=== PATIENT | female | born 1940 | race Two or more races ===

== ENCOUNTER 2016-12-26 11:30 | Inpatient (IN) | payer MEDICARE, SELFPAY ==
[~2016-12-26] VITALS: Ht 149.9 cm; Wt 62.6 kg
--- NOTE | ~2016-12-26 | HP ---
PATIENT'S NAME: GLADYS KAPADIA [facility] AGE: 76 Y [address] ROOM: [place] [address] LOCATION: GPCU ADMIT DATE: 12/26/2016 History & Physical DISCHARGE DATE: FAMILY PHYSICIAN: Oc Puckett MD ATTENDING PHYSICIAN: Amanda PHOENIX DATE OF SERVICE: CHIEF COMPLAINT: Hematuria. HISTORY OF PRESENT ILLNESS: The patient is a 76-year-old female with past medical history of uncontrolled diabetes mellitus, CKD stage 3, fatty liver disease, hypertension, venous stasis, and psoriasis, who presents here from her PCP's office with hematuria and uncontrolled diabetes mellitus. The patient was experiencing hematuria on Thursday and was seen by her primary care physician, was started on Macrobid. However, symptoms did not improve, which led her to be seen again by her PCP's office today. At her PCP's office, she was found to have a blood glucose of 611 and a hemoglobin of 9.1, which is decreased from her prior of 10.8. The patient continues to have some hematuria. The patient was transferred here for treatment of uncontrolled diabetes mellitus type 2 and hematuria. The patient currently reports dysuria and hematuria. She also reports polyuria and polydipsia. The patient claims that she is compliant with her medication and has not missed any of her insulin doses or her oral antidiabetic medication. The patient denies chest pain, shortness of breath, abdominal pain, nausea, vomiting, back pain, fever, chills, orthopnea, dyspnea, dizziness, headache, vision change, and nosebleed. The patient reports that at one point around May of last year, she has had some hematuria that got better by itself. PAST MEDICAL HISTORY: Diabetes mellitus, fatty liver, venous stasis, hypertension, CKD stage 3, and psoriasis. SURGICAL HISTORY: Complete hysterectomy, cataract, gallstone removal, and back surgery. FAMILY HISTORY: Father from lung cancer and mother from kidney cancer. SOCIAL HISTORY: She is a former smoker but has stopped since 1997. She denies drinking and lives with her ex-. [facility] AGE: 76 Y [address] ROOM: [place] [address] LOCATION: GPCU ADMIT DATE: 12/26/2016 History & Physical DISCHARGE DATE: FAMILY PHYSICIAN: Oc Puckett MD ATTENDING PHYSICIAN: Amanda PHOENIX MEDICATIONS: See MAR. REVIEW OF SYSTEMS: A 10-point system was evaluated. All negative except what is stated in the HPI. PHYSICAL EXAMINATION: VITAL SIGNS: Temperature of 98.3, blood pressure 104/58, pulse of 85. GENERAL APPEARANCE: The patient is comfortable, lying on bed, alert and awake, in no acute distress. HEAD: Normocephalic, atraumatic. EYES: Extraocular muscle intact. Sclerae nonicteric. MOUTH: Dry oral mucosa, denture present. NOSE: No nasal discharges. EARS: No ear discharges. NECK: Supple. CHEST: Clear to auscultation bilaterally. ABDOMEN: Soft, nontender, nondistended. Bowel sounds present. No guarding. HEART: Regular rate and rhythm. Grade 2 systolic murmur heard in left lower sternal border. SKIN: The patient has some venous stasis changes in the lower extremities. MUSCULOSKELETAL: Range of motion intact. No swelling or effusion noted on joints. EXTREMITIES: Lower extremity venous stasis change seen. No edema. ANNEALER: Alert and oriented x3. Motor and sensory grossly intact. LABORATORY DATA: Lactate of 3.4. White blood cell count of 4.7, hemoglobin of 9.1, platelet of 167. INR of 1.2. Hemoglobin A1c of 14.2, and potassium of 5 with CO2 of 28, BUN of 22 and creatinine of 1.3. Urinalysis shows protein of 500, glucose of 1000, ketones 15, white blood cell count of 5 to 10, and blood of 250. ASSESSMENT AND PLAN: The patient is a 76-year-old lady with past medical history of diabetes mellitus, chronic kidney disease stage 3, hypertension, and fatty liver, who presents here with hematuria and uncontrolled diabetes mellitus type 2. 1. Acute blood loss, etiology secondary to history of hematuria, has been experiencing hematuria since Thursday. Currently, hemoglobin is 9.1, decreased from baseline of 10.8. We will check hemoglobin q.8 hours. Transfuse for hemoglobin below 7. Etiology of the hematuria most likely secondary to ongoing urinary tract infection versus underlying malignancy since the patient has a history of smoking and also has a family history of kidney cancer. As the patient is dehydrated and has mild elevation of PATIENT'S NAME: GLADYS KAPADIA [facility] AGE: 76 Y [address] ROOM: [address] [place], [place] [address] [facility] DATE: 12/26/2016 History & Physical DISCHARGE DATE: FAMILY PHYSICIAN: Oc Puckett MD ATTENDING PHYSICIAN: Amanda PHOENIX creatinine, we will treat the patient with IV fluids, and when she is adequately hydrated, we will consider getting a CT abdomen and pelvis with contrast to further investigate malignancy. If that does not show any etiology, we will consider consulting Urology for possible cystoscopy to further investigate hematuria. We will start the patient on ceftriaxone. 2. Uncontrolled diabetes mellitus type 2. The patient reports that she takes her medication at home. We will currently start the patient on non- DKA insulin drip. We will hold oral antidiabetic medication including metformin. Her PCP reports that she is brittle diabetic, and we will take extra care in terms of correction of her blood glucose. Continue with non-DKA protocol insulin drip. 3. Lactic acidosis, etiology secondary to dehydration, secondary to polydipsia, secondary to uncontrolled diabetic. Continue IV fluids. We will trend lactate until it is normal. 4. Urinary tract infection. The patient reports of dysuria, and UA shows elevated white blood cell and pyuria. Therefore, we will start the patient on ceftriaxone, and we will also get urine culture. 5. Dehydration. Etiology secondary to uncontrolled diabetes mellitus type 2 with history of polyuria. We will start the patient on IV fluids, and we will repeat the renal function panel tomorrow. 6. Chronic kidney disease stage 3, currently on IV fluids. We will follow the patient closely. 7. Hypertension. There is a history of hypertension under her past medical history, but I do not see any medication that she is on currently. We will continue that. 8. Diabetic neuropathy, on gabapentin. We will continue medication. 9. Gastroesophageal reflux disease, on omeprazole. Continue omeprazole. 10. Depression. Continue Zoloft. 11. Hyperlipidemia. We will continue Lipitor. Assessment and plan was discussed with the patient. Greater than 30 minutes was spent on plan and care. ALBANMD DAMIR KERNS/lashaun /[id number] D: [id number] T: [id number] HISTORY & PHYSICAL
--- NOTE | ~2016-12-26 | ECHO ---
Transthoracic Echocardiography Report (TTE) Demographics Patient Name GLADYS KAPADIA Date of Study 12/29/2016 Patient Number [id number] Visit Number [id number] Date of 1940 Room Number G6318 Accession Number [id number] Gender Female Age 76 year(s) Referring Italo Nava MD Washing Machine Loader Nadege Melendez Physician Octavio Zazueta MD [facility] Phys[facility] Interpreting Candi Brito Prawn Trawler Hand Physician Supervising Ordering Physician Mora Crump MD/NAIF NAPIER Nurse Stress Tower Truck Driver Conclusions Contractility Score Summary Normal Left Ventricular contractility was noted. Summary The estimated left ventricular ejection fraction is 60% with normal WM..The left ventricle is normal in size .Mild concentric left ventricular hypertrophy. The left atrium is mildly dilated. Mild mitral regurgitation by color Doppler. The aortic valve is moderately sclerotic. Mild tricuspid regurgitation by color Doppler. There is moderate pulmonary hypertension. The pulmonary pressure (RVSP) is 45 mmHg. Small clinically insignificant posterior pericardial effusion. Procedure Type of Study TTE procedure:2D Echocardiogram, M-Mode, Doppler , Color Doppler. Procedure Date Date: 12/29/2016 Start: 07:50 AM Study Location: Inpatient Portable Technical Quality: Adequate visualization Indications:Heart murmur. Appropriate Use Criteria: 9 Patient Status: Routine HR: 67 bpm BP: 113/56 mmHg M-Mode/2D Measurements LV Diastolic Dimension: 3.99 cm LV Systolic Dimension: 1.83 cm LV Septum Diastolic: 1.12 cm LV PW Diastolic: 1.14 cm AO Root Dimension: 2.8 cm Cardiac Output: 4.73 l/min AV Cusp Separation: 1 cm RV Diastolic Dimension: 2.69 cm LA volume: 56 ml LVOT: 1.7 cm RV Base: 3.77 cm LVOT VTI: 31.1 cm RV Mid: 2.94 cm LV Stroke volume: 70.56 ml TAPSE: 2.34 cm TDI-S': 14.6 cm/s Doppler Measurements AV Peak Velocity: 2.32 m/s MV Peak E-Wave: 1.38 m/s AV Peak Gradient: 21.53 mmHg MV Peak A-Wave: 1.35 m/s AV Mean Gradient: 11 mmHg MV E/A Ratio: 1.02 LVOT Peak Velocity: 1.02 m/s MV Deceleration Time: 349 msec TR Velocity:3.06 m/s PV Peak Velocity: 1.22 m/s TR Gradient:37.45 mmHg PV Peak Gradient: 5.95 mmHg Estimated RAP:8 mmHg Estimated PASP: 45.45 mmHg Estimated RVSP: 45 mmHg A' Septal Velocity: 0.05 m/s E' Septal Velocity: 0.07 m/s A' Lateral Velocity: 0.1 m/s E' Lateral Velocity: 0.06 m/s Findings Left Ventricle The left ventricle is normal in size .Mild concentric left ventricular hypertrophy.Normal EF and WM. Right Ventricle Normal right ventricle structure and function. Left Atrium The left atrium is mildly dilated. Right Atrium Normal right atrial size. Mitral Valve Mild mitral annular calcification. Mild mitral regurgitation by color Doppler. Aortic Valve The aortic valve is moderately sclerotic. Tricuspid Valve Normal tricuspid valve structure and function. Mild tricuspid regurgitation by color Doppler. There is moderate pulmonary hypertension. The pulmonary pressure (RVSP) is 45 mmHg. Pulmonic Valve The pulmonic valve is not well visualized. Pericardial Effusion Small posterior pericardial effusion. Miscellaneous Visualized portions of the aortic root and ascending aorta appear normal in size. Pleural Effusion No evidence of pleural effusion. Contractility Score LV regional wall motion:(0-Non visualized 1-Normal 2-Hypokinesis 3-Akinesis 4-Dyskinesis 5-Aneurysm) Signature dtt: Alisha Christopher dtd: 12/29/16 1640 Physician Self Edit
--- NOTE | ~2016-12-26 | DS ---
PATIENT'S NAME: GLADYS KAPADIA [facility] AGE: 76 Y [address] ROOM: [address] [place], [place] [address] LOCATION: GPCU ADMIT DATE: 12/26/2016 Discharge Summary DISCHARGE DATE: 12/30/2016 FAMILY PHYSICIAN: Oc Puckett MD ATTENDING PHYSICIAN: Carlita Patel PRINCIPAL DIAGNOSES: 1. Hematuria. 2. Acute blood loss anemia. 3. Type 2 diabetes, uncontrolled. 4. Urinary tract infection. HOSPITAL COURSE: This is a 76-year-old female who was admitted directly from her primary care physician's office after she presented there with complaint of hematuria as well as kwyjxyivw-gi-[id number] diabetes. The patient was evaluated and worked up for a cause of the hematuria including a CT scan of her abdomen and pelvis, which did not reveal any abnormalities to explain her hematuria from a renal standpoint at least. The patient was also evaluated by Urology and recommendation right now is to follow up with Dr. Nick as outpatient and conduct a cystoscopy as outpatient during that time as well. The patient has stayed stable throughout her hospitalization. Hemoglobin and hematocrit had been stable as well. The patient did have symptoms consistent with a urinary tract infection as well and had been treated with IV ceftriaxone during hospitalization. The patient today is doing good from that standpoint. As far as her diabetes, the patient does have brittle diabetes with blood sugars ranging under 100 in the a.m. hours and going up to 300s during the day. At this point, I will try and simplify her diabetes regimen and send her home on 20 units of Levemir in the morning and 5 units of NovoLog with meals 3 times a day, and she will follow up with her primary care physician within 1 week to follow up on that. I will also discharge her on 5 more days of Ceftin 500 mg b.i.d. to finish antibiotic course for her UTI as well. PHYSICAL EXAMINATION: VITAL SIGNS: Stable, afebrile. CHEST: Clear to auscultation bilaterally. HEART: S1, S2. Regular rate and rhythm. ABDOMEN: Soft, nontender, nondistended with positive bowel sounds. EXTREMITIES: Without edema. NEURO: Grossly nonfocal. MEDICATIONS: Per MAR including, 1. Ceftin 500 mg b.i.d. for 5 days. 2. Diabetic regimen changes include Levemir 20 units daily as well as scheduled NovoLog 5 units 3 times a day with meals. PATIENT'S NAME: GLADYS KAPADIA [facility] AGE: 76 Y [address] ROOM: [id number] [place] [id number] [facility]: 12/26/2016 Discharge Summary DISCHARGE DATE: 12/30/2016 FAMILY PHYSICIAN: Oc Puckett MD ATTENDING PHYSICIAN: Carlita Patel DISPOSITION: Home. Greater than 30 minutes were spent in discharge planning and facilitating. MD ZAHIRA PRICE/lashaun /[id number] d: 12/31/16 0213 t: 01/05/17 1419, DISCHARGE SUMMARY
--- NOTE | ~2016-12-26 | CON ---
[facility] AGE: 76 Y [address] ROOM: [place] [address] LOCATION: GPCU ADMIT DATE: 12/26/2016 Consultation DISCHARGE DATE: FAMILY PHYSICIAN: Oc Puckett MD ATTENDING PHYSICIAN: Amanda PHOENIX DATE OF CONSULTATION: 12/27/2016 REFERRING PHYSICIAN: Lavelle Nick MD HISTORY OF PRESENT ILLNESS: History as follows: The patient is a 76-year-old female, admitted secondary to uncontrolled type 2 diabetes and multiple medical problems. At her primary care physician's office, her glucose was 611. The patient also reports gross hematuria for some time. The patient denies a history recent trauma or infection. She does report that her hematuria is resolving. A urinalysis was obtained shows full field red cells with only 510 white cells and nitrite negative, and urine culture is probable contaminant. An abdominopelvic CT scan was performed today, this showed no significant urological abnormalities other than posterior bladder wall thickening, possibly due to chronic inflammation. The patient does have a history of cigarette smoking in the past. In view of her negative CT scan, I would recommend cystoscopy either as an inpatient or can be performed as an outpatient. PAST MEDICAL HISTORY: Significant for diabetes, fatty liver, hypertension, cirrhosis, stage III renal insufficiency, and venous stasis. PAST OPERATIONS: Include hysterectomy, cataract surgery, cholecystectomy, back surgery, and partial lung resection. SOCIAL HISTORY: The patient is a nonsmoker, stopping in 1997. The patient does not consume alcohol. REVIEW OF SYMPTOMS: Negative other than hematuria. PHYSICAL EXAMINATION: GENERAL: Elderly female, in no acute distress, resting comfortably in bed. HEENT: Eyes: Extraocular muscle motions intact. Ears, Nose, Mouth, and Throat: No nasal or ear drainage noted. LUNGS: Clear bilaterally. CARDIAC: Regular rhythm and rate. ABDOMEN: Soft and nontender with normoactive bowel sounds throughout. [facility] AGE: 76 Y [address] ROOM: [id number] [place] [id number] LOCATION: GPCU ADMIT DATE: 12/26/2016 Consultation DISCHARGE DATE: FAMILY PHYSICIAN: Oc Puckett MD ATTENDING PHYSICIAN: Amanda PHOENIX SKIN: Venostasis changes in lower extremities. NEURO: Grossly intact. MUSCULOSKELETAL: Full range of motion. IMPRESSION: Gross hematuria with minimal CT changes. PLAN: 1. We will check urine cytology. 2. We will schedule the patient for either inpatient or outpatient cystoscopy. MD JOSSY NUNN/lashaun /[id number] d: 12/27/162219 t: 12/29/16 192, CONSULTATION REPORT
[2016-12-26] MEDS ORDERED: ASPIRIN LO-DOSE81 MG PO (13:36)
[2016-12-26] MEDS ORDERED: LOTENSIN10 MG PO (13:37)
[2016-12-26] MEDS ORDERED: LIPITOR20 M1 PO (13:37)
[2016-12-26] MEDS ORDERED: DIPHENHIST25 M1 PO (13:38)
[2016-12-26] MEDS ORDERED: NEURONTIN400 MG PO (13:38)
[2016-12-26] MEDS ORDERED: GLUCOPHAGE500 MG PO (13:39)
[2016-12-26] MEDS ORDERED: LEVEMIR FL100 UNIT/1 SUB-Q (13:39)
[2016-12-26] MEDS ORDERED: NITROFURANTOIN100 MG PO (13:41)
[2016-12-26] MEDS ORDERED: PRILOSEC20 MG PO (13:43)
[2016-12-26] MEDS ORDERED: NOVOLOG FL100 UNIT/1 SUB-Q (13:43)
[2016-12-26] MEDS ORDERED: DITROPAN5 MG PO (13:44)
[2016-12-26] MEDS ORDERED: ZOLOFT50 MG PO (13:45)
[2016-12-26] MEDS ORDERED: REQUIP1 MG PO (13:45)
[2016-12-26] MEDS ORDERED: TYLENOL325 MG PO (13:46)
[2016-12-26] MEDS ORDERED: CALCIUM 600 +1 EAC6 PO (13:46)
[2016-12-26] MEDS ORDERED: DUREZOL5 ML OPHTH (13:47)
[2016-12-26 13:49] LABS: BILIRUBIN URINE NEGATIVE (NEGATIVE); BLOOD URINE 250 /UL (NEGATIVE); COLOR URINE RED (YELLOW); GLUCOSE URINE 1000 mg/dL (NEGATIVE); KETONE URINE 15 mg/dL (NEGATIVE); LEUKOCYTES URINE 100 /UL (NEGATIVE); NITRITE URINE NEGATIVE (NEGATIVE); PH URINE 6.5 (4.0-8.0); PROTEIN URINE 500 mg/dL (NEGATIVE); TURBIDITY URINE 4+ (CLEAR); UROBILINOGEN URINE NORMAL (NORMAL)
[2016-12-26 13:54] LABS: BASOPHIL % 0.9 %; EOSINOPHIL # 0.1 K/uL (0.0-0.5); EOSINOPHIL % 2.4 %; HEMATOCRIT 29.2 % (33.0-46.0); HEMOGLOBIN 9.1 g/dL (10.0-15.0); IMMATURE GRANULOCYTE % 0.9 %; LYMPHOCYTE # 0.9 K/uL (0.8-4.0); LYMPHOCYTE % 18.6 %; MCH 27.1 pg (27.0-34.0); MCHC 31.2 gm/dL (32.0-36.5); MCV 86.9 fl (83.0-98.0); MONOCYTE # 0.5 K/uL (0.0-1.0); MONOCYTE % 9.6 %; MPV 10.6 fl (9.4-12.4); NEUTROPHIL # (ANC) 3.2 K/uL (1.8-7.8); NEUTROPHIL % 67.6 %; NRBC % 0 /100WBC (0-0.00); PLATELET COUNT 167 K/uL (150-450); RBC 3.36 M/uL (3.50-5.50); RDW-CV 14.2 % (11.9-14.6); WBC 4.7 K/uL (4.0-11.0)
[2016-12-26 13:55] LABS: BACTERIA URINE NEGATIVE (NEGATIVE); EPITHELIAL URINE RARE #/HPF (NEGATIVE); RBC URINE FULL FIELD #/HPF (NEGATIVE)
[2016-12-26 14:16] LABS: ALBUMIN 2.2 gm/dL (3.5-5.0); CALCIUM 8.1 mg/dL (8.5-10.5); CREATININE 1.3 mg/dL (0.5-1.1); PHOSPHORUS 2.6 mg/dL (2.5-4.9)
[2016-12-26 23:18] LABS: HEMATOCRIT 26.3 % (33.0-46.0); HEMOGLOBIN 8.3 g/dL (10.0-15.0)
[2016-12-27 03:47] LABS: BASOPHIL # 0.1 K/uL (0.0-0.2); BASOPHIL % 1.2 %; EOSINOPHIL # 0.2 K/uL (0.0-0.5); EOSINOPHIL % 4.8 %; HEMOGLOBIN 8.6 g/dL (10.0-15.0); IMMATURE GRANULOCYTE % 0.6 %; LYMPHOCYTE # 1.2 K/uL (0.8-4.0); LYMPHOCYTE % 24.2 %; MCH 27.6 pg (27.0-34.0); MCHC 31.9 gm/dL (32.0-36.5); MCV 86.5 fl (83.0-98.0); MONOCYTE # 0.5 K/uL (0.0-1.0); MONOCYTE % 10.3 %; MPV 10.4 fl (9.4-12.4); NEUTROPHIL # (ANC) 2.9 K/uL (1.8-7.8); NEUTROPHIL % 58.9 %; NRBC % 0 /100WBC (0-0.00); PLATELET COUNT 162 K/uL (150-450); RBC 3.12 M/uL (3.50-5.50); RDW-CV 14.4 % (11.9-14.6)
[2016-12-27 04:26] LABS: BLOOD UREA NITROGEN 19 mg/dL (6-24); CALCIUM 7.8 mg/dL (8.5-10.5); CHLORIDE 104 mMol/L (96-110); CO2 28 mMol/L (22-32); CREATININE 0.8 mg/dL (0.5-1.1); PHOSPHORUS 2.8 mg/dL (2.5-4.9); SODIUM 137 mMol/L (135-145)
[2016-12-27 04:28] LABS: ALBUMIN 1.8 gm/dL (3.5-5.0); ESTIMATED GFR (MDRD EQUATION) > 60
[2016-12-27 07:51] LABS: HEMATOCRIT 29.7 % (33.0-46.0); HEMOGLOBIN 9.2 g/dL (10.0-15.0)
[2016-12-27 16:05] LABS: HEMATOCRIT 28.2 % (33.0-46.0); HEMOGLOBIN 8.8 g/dL (10.0-15.0)
[2016-12-28 00:14] LABS: HEMATOCRIT 26.5 % (33.0-46.0); HEMOGLOBIN 8.3 g/dL (10.0-15.0)
[2016-12-28 05:10] LABS: BASOPHIL # 0.1 K/uL (0.0-0.2); BASOPHIL % 1.1 %; EOSINOPHIL # 0.3 K/uL (0.0-0.5); EOSINOPHIL % 5.6 %; HEMATOCRIT 27.6 % (33.0-46.0); HEMOGLOBIN 8.7 g/dL (10.0-15.0); IMMATURE GRANULOCYTE % 0.7 %; LYMPHOCYTE # 1.3 K/uL (0.8-4.0); LYMPHOCYTE % 29.8 %; MCH 27.5 pg (27.0-34.0); MCHC 31.5 gm/dL (32.0-36.5); MCV 87.3 fl (83.0-98.0); MONOCYTE # 0.4 K/uL (0.0-1.0); MONOCYTE % 9.6 %; MPV 9.9 fl (9.4-12.4); NEUTROPHIL # (ANC) 2.4 K/uL (1.8-7.8); NEUTROPHIL % 53.2 %; NRBC % 0 /100WBC (0-0.00); PLATELET COUNT 164 K/uL (150-450); RBC 3.16 M/uL (3.50-5.50); RDW-CV 14.3 % (11.9-14.6); WBC 4.5 K/uL (4.0-11.0)
[2016-12-28 05:28] LABS: ANION GAP 11.4 (10.0-19.0); BLOOD UREA NITROGEN 10 mg/dL (6-24); CALCIUM 8.1 mg/dL (8.5-10.5); CHLORIDE 109 mMol/L (96-110); CO2 25 mMol/L (22-32); CREATININE 0.5 mg/dL (0.5-1.1); ESTIMATED GFR (MDRD EQUATION) > 60; PHOSPHORUS 3.1 mg/dL (2.5-4.9); POTASSIUM 4.4 mMol/L (3.7-5.1); SODIUM 141 mMol/L (135-145)
[2016-12-28 05:34] LABS: ALBUMIN 1.8 gm/dL (3.5-5.0)
[2016-12-29 04:53] LABS: BASOPHIL # 0.1 K/uL (0.0-0.2); BASOPHIL % 1.2 %; EOSINOPHIL # 0.2 K/uL (0.0-0.5); EOSINOPHIL % 4.6 %; HEMATOCRIT 26.3 % (33.0-46.0); HEMOGLOBIN 8.3 g/dL (10.0-15.0); IMMATURE GRANULOCYTE # 0.1 K/uL (0.0-0.3); IMMATURE GRANULOCYTE % 1.2 %; LYMPHOCYTE # 1.3 K/uL (0.8-4.0); LYMPHOCYTE % 30.2 %; MCH 27.5 pg (27.0-34.0); MCHC 31.6 gm/dL (32.0-36.5); MCV 87.1 fl (83.0-98.0); MONOCYTE # 0.5 K/uL (0.0-1.0); MONOCYTE % 11.5 %; MPV 10.2 fl (9.4-12.4); NEUTROPHIL # (ANC) 2.2 K/uL (1.8-7.8); NEUTROPHIL % 51.3 %; NRBC % 0 /100WBC (0-0.00); PLATELET COUNT 157 K/uL (150-450); RBC 3.02 M/uL (3.50-5.50); RDW-CV 14.6 % (11.9-14.6); WBC 4.3 K/uL (4.0-11.0)
[2016-12-29 05:05] LABS: ANION GAP 11.1 (10.0-19.0); BLOOD UREA NITROGEN 11 mg/dL (6-24); CALCIUM 8.2 mg/dL (8.5-10.5); CHLORIDE 108 mMol/L (96-110); CO2 24 mMol/L (22-32); CREATININE 0.5 mg/dL (0.5-1.1); ESTIMATED GFR (MDRD EQUATION) > 60; PHOSPHORUS 3.5 mg/dL (2.5-4.9); POTASSIUM 4.1 mMol/L (3.7-5.1); SODIUM 139 mMol/L (135-145)
[2016-12-29 05:09] LABS: ALBUMIN 1.7 gm/dL (3.5-5.0)
[2016-12-30 04:44] LABS: BASOPHIL # 0.1 K/uL (0.0-0.2); BASOPHIL % 1.3 %; EOSINOPHIL # 0.2 K/uL (0.0-0.5); EOSINOPHIL % 4.4 %; HEMATOCRIT 26.3 % (33.0-46.0); HEMOGLOBIN 8.2 g/dL (10.0-15.0); IMMATURE GRANULOCYTE # 0.1 K/uL (0.0-0.3); IMMATURE GRANULOCYTE % 1.1 %; LYMPHOCYTE # 1.3 K/uL (0.8-4.0); LYMPHOCYTE % 28.7 %; MCH 27.3 pg (27.0-34.0); MCHC 31.2 gm/dL (32.0-36.5); MCV 87.7 fl (83.0-98.0); MONOCYTE # 0.5 K/uL (0.0-1.0); MONOCYTE % 11.2 %; MPV 10.2 fl (9.4-12.4); NEUTROPHIL # (ANC) 2.4 K/uL (1.8-7.8); NEUTROPHIL % 53.3 %; NRBC % 0 /100WBC (0-0.00); PLATELET COUNT 174 K/uL (150-450); RDW-CV 14.6 % (11.9-14.6); WBC 4.6 K/uL (4.0-11.0)
[2016-12-30 04:57] LABS: BLOOD UREA NITROGEN 12 mg/dL (6-24); CALCIUM 7.9 mg/dL (8.5-10.5); CHLORIDE 110 mMol/L (96-110); CO2 26 mMol/L (22-32); CREATININE 0.6 mg/dL (0.5-1.1); ESTIMATED GFR (MDRD EQUATION) > 60; PHOSPHORUS 3.3 mg/dL (2.5-4.9); SODIUM 140 mMol/L (135-145)
[2016-12-30 04:58] LABS: ALBUMIN 1.8 gm/dL (3.5-5.0)
[2016-12-30] MEDS ORDERED: CEFTIN500 MG PO (13:39)
== END 2016-12-30 14:15 | disposition disaster alternative care site (69) | DRG 638 ==
LOC: GPCU 12:35
PROVIDERS: Internal Medicine; ADMIT Internal Medicine
DX: E11.65 Type 2 diabetes mellitus with hyperglycemia (principal); D62 Acute posthemorrhagic anemia; E87.2 Acidosis; N39.0 Urinary tract infection, site not specified; K76.0 Fatty (change of) liver, not elsewhere classified; G62.9 Polyneuropathy, unspecified; E86.0 Dehydration; E78.5 Hyperlipidemia, unspecified; F32.9 Major depressive disorder, single episode, unspecified; I12.9 Hypertensive chronic kidney disease with stage 1 through stage 4 chronic kidney disease, or unspecified chronic kidney disease; N18.3 Chronic kidney disease, stage 3 (moderate); E11.40 Type 2 diabetes mellitus with diabetic neuropathy, unspecified; I87.8 Other specified disorders of veins; L40.9 Psoriasis, unspecified; Z87.891 Personal history of nicotine dependence; K21.9 Gastro-esophageal reflux disease without esophagitis
CPT/HCPCS: J0696; J7030; J7050; J7121; Q9967

== ENCOUNTER 2017-03-11 12:45 | Observation (INO) | payer MEDICARE, SELFPAY ==
[~2017-03-11] VITALS: Ht 147.3 cm; Wt 62.4 kg
--- NOTE | ~2017-03-11 | DS ---
PATIENT'S NAME: GLADYS KAPADIA [facility] AGE: 77 Y [address] ROOM: [place] [address] LOCATION: GPCU ADMIT DATE: 03/11/2017 Discharge Summary DISCHARGE DATE: 03/13/2017 FAMILY PHYSICIAN: Oc Puckett MD ATTENDING PHYSICIAN: Anastacio Greco ADMITTING DIAGNOSIS: Hematuria. DISCHARGE DIAGNOSIS: Hematuria, resolved. SECONDARY DIAGNOSES: 1. Anemia of iron deficiency. 2. Dehydration. 3. Diabetes mellitus type 2. 4. Fatty liver disease with possible cirrhosis on imaging. CONSULTATION: Urology. HISTORY OF PRESENT ILLNESS: The patient is a 77-year-old female with past medical history of diabetes mellitus type 2, fatty liver disease, iron- deficiency anemia, who presents to the emergency department with few day history of gross hematuria. The patient has been admitted to our hospital on December for the same presentation and has had CT that shows swelling of the bladder. The patient was admitted and had cystoscopy done by Dr. Nick, which was unremarkable. The patient's symptoms improved and was discharged home. The patient now presents with the same chief complaint of hematuria. HOSPITAL COURSE: The patient was admitted and was observed for hematuria. The patient's hematuria improved during her stay. The patient's urine on the day of discharge is clear. Her hemoglobin was trended serially. The patient's hemoglobin was stable during her stay. On day of discharge, hemoglobin was 9.0. The patient's baseline hemoglobin is around 8.329. The patient also had ultrasound of the abdomen. Initial cirrhotic morphology of the liver with no focal lesion identified. According to the patient, the patient has had workup done for her liver disease as an outpatient and was also seen in [place] and was told it is because of her diabetic and weight, which I suspect this to be non-alcoholic fatty liver disease. The patient was seen by Dr. Nick during her stay and the patient was deemed to be okay to be discharged home to follow up as outpatient with Dr. Nick. The patient was started on iron supplement for iron-deficiency anemia, most likely secondary to history of multiple hematurias. CONDITION: Stable. DISPOSITION: Home. [facility]GE[facility] 77 Y [address] ROOM: [place] [id number] LOCATION: GPCU ADMIT DATE: 03/11/2017 Discharge Summary DISCHARGE DATE: 03/13/2017 FAMILY PHYSICIAN: Oc Puckett MD ATTENDING PHYSICIAN: Anastacio Greco DISCHARGE MEDICATION: See NOV. DISCHARGE INSTRUCTIONS: Follow up with Dr. Nick and also a long discussion made about medication compliancy as the patient is not compliant with medication, especially with her insulin regimen. PENDING STUDIES: No pending studies. FOLLOWUP: With primary care physician with repeat CBC on March 18, 2017, and also follow up with Dr. Nick. PHYSICAL EXAMINATION: VITAL SIGNS: Temperature 98.4, blood pressure 129/56, pulse of 77, respiratory rate of 18. GENERAL APPEARANCE: The patient is alert and awake, in no acute distress. CHEST: Clear to auscultation bilaterally. HEART: Regular rate and rhythm. No murmurs, rubs, or gallops. ABDOMEN: Soft, nontender, and nondistended. Bowel sounds are present. MUSCULOSKELETAL: Range of motion intact. CURTAIN STRETCHER: The patient is alert and oriented x3. Motor and sensory grossly intact. Greater than 30 minutes was spent on this patient's discharge planning. MD PATIENCE MARCIAL/lashaun /[id number] d: 03/14/17621 t: 03/14/17 1749, DISCHARGE SUMMARY
--- NOTE | ~2017-03-11 | HP ---
PATIENT'S NAME: GLADYS [facility]APAD[facility] AGE: 77 Y [address] ROOM: [id number] [place], [place] [address] LOCATION: [facility]PCU ADMIT DATE: 03/11/2017 History & Physical DISCHARGE DATE: FAMILY PHYSICIAN: Oc Puckett MD ATTENDING PHYSICIAN: HODA GALVEZ DATE OF SERVICE: CHIEF COMPLAINT: Painless gross hematuria. HISTORY OF PRESENT ILLNESS: This is a 77-year-old female who says that roughly for the last 2 weeks she has been having decreased oral intake from loss of appetite. The patient was recently discharged from our hospital on December 30, 2016, for painless gross hematuria secondary to urinary tract infection. At that time, the CT of the abdomen and pelvis without and with contrast showed posterior bladder wall thickening and possibly inflammatory or chronic scarring and less likely malignancy. The patient was treated with IV ceftriaxone for UTI, and eventually the patient's gross hematuria resolved. When the patient was discharged, the patient had outpatient followup with urologist, Dr. Nick; and she had a cystoscopy performed. It was on January 16, 2017, according to the patient; and she was told that it was normal according to the patient. The patient was sent home. However, since last Thursday, the patient has noticed again this recurrent painless gross hematuria associated with blood clots in the urine intermittently. The urinary blood clots persisted until Thursday and then her urine became more dark red; and there were no more urinary blood clots. She went to see her primary care physician on Thursday, which was the next day; and she was found to have elevated glycemia; but she did not have a urinalysis tested at that time according to the patient. The patient was sent home with some adjustment of the diabetic medications which the patient could not remember. Today, she had a followup with her primary care physician; and her glucose was still found to be elevated at 480 in the office; and she was found to be anemic as well, hemoglobin at 10.0 and hematocrit 32. When I reviewed our [employer] when she was here last time, her hemoglobin averaged at 8.5, hematocrit averaged at 26.5. The patient was still complaining of recurrent painless gross hematuria without blood clots in the urine, and the patient was sent over here for further care. The patient also says that for the last few days she has been having urinary frequency and urgency and occasional dysuria. She denies any fever or chills. No chest pain, shortness of breath, abdominal pain, diarrhea, or any other symptoms besides a poor appetite for the last 2 weeks. The patient is very noncompliant with her home medications. She often forgets to take her home medications, and she does not remember which medication she is taking at home. PATIENT'S NAME: GLADYS KAPADIA [facility] AGE: 77 Y [address] ROOM: [id number] [place], [place] [address] [facility] ADMIT DATE: 03/11/2017 History & Physical DISCHARGE DATE: FAMILY PHYSICIAN: Oc Puckett MD ATTENDING PHYSICIAN: HODA GALVEZ According to the patient, she has had a partial right upper lung resection back in [place] in 2012. REVIEW OF SYSTEMS: As mentioned in the history of present illness. All other systems were reviewed, and they were negative except those mentioned in the history of present illness. ALLERGIES: NO KNOWN DRUG ALLERGIES. HOME MEDICATIONS: 1. Tylenol 650 mg p.o. every 4 hours p.r.n. for pain or fever. 2. Aspirin 81 mg p.o. daily. 3. Atorvastatin 10 mg p.o. daily. 4. Benazepril 10 mg p.o. daily. 5. Calcium carbonate and vitamin D3 one tablet p.o. b.i.d. 6. Durezol eyedrop 1 drop each eye twice a day. 7. Diphenhydramine 25 mg p.o. every night at bedtime p.r.n. for insomnia. 8. Gabapentin 400 mg p.o. b.i.d. 9. Insulin aspart 3 times daily with meals by using a sliding scale. 10. Insulin Levemir 20 units every morning. 11. Metformin 500 mg p.o. b.i.d. 12. Omeprazole 20 mg p.o. daily. 13. Oxybutynin 5 mg p.o. b.i.d. 14. Requip 1 mg p.o. every night at bedtime. 15. Zoloft 50 mg p.o. every night at bedtime. SOCIAL HISTORY: The patient was a former cigarette smoker about 3 packs per day since she was 12 years old, but she quit smoking about 10 years ago. She denies any alcohol or any illegal drug use. FAMILY HISTORY: Father from lung cancer. He was a heavy smoker. Her mother from kidney cancer at old age. PAST SURGICAL HISTORY: 1. Status post hysterectomy. 2. Status post cataract surgery. 3. Status post cholecystectomy. 4. Status post lower back surgery. 5. Status post partial right upper lung resection. According to the patient in [place], for a lung mass, back in 2012. PATIENT'S NAME: GLADYS KAPADIA [facility] AGE: 77 Y [address] ROOM: [address] [address] [facility] AD[facility] DATE: 03/11/2017 History & Physical DISCHARGE DATE: FAMILY PHYSICIAN: Oc Puckett MD ATTENDING PHYSICIAN: HODA GALVEZ PHYSICAL EXAMINATION: VITAL SIGNS: At the time of my dictation, temperature was 98.1, heart rate was 85, respiration was 16, blood pressure was 102/57, MAP of 73, and saturations 94% on room air. GENERAL APPEARANCE: The patient is alert and oriented x3. Currently, in no acute distress. HEENT: Anicteric sclerae. Pupils are equally round and reactive to light. Extraocular muscles intact. Nasal turbinates are normal bilaterally. Dry oral mucosa. NECK: No JVD. CARDIOVASCULAR: Regular rate and rhythm. Very faint murmur about intensity of 2. She states this is chronic. No rubs, no gallops. Normal S1 and S2. RESPIRATORY: Decreased breath sounds diffusely. Some mild crackle on the right lower lung. No rales, no rhonchi, no wheezing. ABDOMEN: Soft, nontender, nondistended, bowel sounds present, and no palpable mass. EXTREMITIES: No edema in upper or lower extremities. She has some excoriation in bilateral lower extremities, but they do not look infected. NEUROLOGIC: Grossly nonfocal. SKIN: She has some excoriation in her bilateral lower extremities, but they do not look infected. MUSCULOSKELETAL: No joint pain and also no muscle pain. Range of motion intact. LABORATORY DATA: Lactic acid 1.9. White blood cells 4.3, hemoglobin 9.5, hematocrit 31.1, MCV 83.2, and platelets 199. Glucose 286, BUN 28, creatinine 1.1. Sodium 132, potassium 5.1, chloride 101, CO2 of 27, calcium 8.4. Total protein 9.2, albumin 2.3, AST 32, ALT 26, alkaline phosphatase 149, total bilirubin 0.2. Anion gap 9.1. GFR 48. Hemoglobin A1c back in December 26, 2016, was 14.2. INR 1.11. PTT 29. Urinalysis pending. Procalcitonin pending. IMAGING STUDY: Ultrasound of the abdomen currently has been performed, and the report is pending. ASSESSMENT AND PLAN: 1. Painless gross hematuria without urinary blood clots: Blood type and screen in case she would require transfusion. I will transfuse if her hemoglobin is less than 7 given that she does not have any known cardiac history at the moment. Continue diabetic diet for now. I will consult Urology in the morning. Currently, her kidney function is in acute kidney injury; and abdominal ultrasound has been performed. I will follow up on the report of the ultrasound and when her kidney function improves to normal PATIENT'S NAME: GLADYS KAPADIA [facility] AGE: 77 Y [address] ROOM: [place] [id number] [facility] AD[facility] DATE: 03/11/2017 History & Physical DISCHARGE DATE: FAMILY PHYSICIAN: Oc Puckett MD ATTENDING PHYSICIAN: HODA GALVEZ tomorrow, we can get a CT scan with and without contrast of the abdomen. Currently, the patient is hemodynamically stable. I will get a urinalysis and also urine culture. She is stable in terms of her vital signs. If the urinalysis show evidence of pyuria, I will start her on antibiotics with IV ceftriaxone just like last time. Check her hemoglobin and hematocrit again later tonight and then once again in the morning. Further plan will depend on clinical course. 2. Uncontrolled diabetes with hyperglycemia: The patient is noncompliant with her home medications. I will continue with her home medication of subcu Levemir. I will do 10 units every night instead of 20 and titrate if needed. In addition, I will give her subcu NovoLog, aggressive dose, q.4 hours. Continue with diabetic diet. Hemoglobin A1c back on December 26, 2016, was 14.2. 3. Hypertension: Medication has to be reconciled first. For now, her blood pressure runs in the low 100s. I will hold her blood pressure medication for now. 4. History of cirrhosis: Abdominal ultrasound has been performed. We will follow up with the report. The patient is not jaundiced. Total bilirubin is normal. Her AST and ALT are normal as well. 5. Acute kidney injury: Likely from dehydration from decreased oral intake. Ultrasound will rule out any postrenal cause looking for hydronephrosis. For now, I will give her IV hydration and check renal panel again in the morning. 6. Code Status: She is a DNR/DNI. 7. Deep venous thrombosis prophylaxis: Continue with compression devices in the setting of gross hematuria. Further plan will depend on clinical course. Total time spent in care on the day of admission was 40 minutes, where 20 minutes were spent on chart review and interviewing and also on physical examination. The remainder of the time was spent on counseling, including addressing all the questions and concerns the patient had and also going over the plan of care with the patient and with the nurse. Further plan will depend on clinical course. HODA GALVEZ MD CC/modl /[id number]: [id number] T: [id number] HISTORY & PHYSICAL
[~2017-03-11 12:45] MED LIST: ASPIRIN LO-DOSE81 MG PO; CALCIUM 600 +1 EAC6 PO; CEFTIN500 MG PO; DIPHENHIST25 M1 PO; DITROPAN5 MG PO; DUREZOL5 ML OPHTH; GLUCOPHAGE500 MG PO; LEVEMIR FL100 UNIT/1 SUB-Q; LIPITOR20 M1 PO; LOTENSIN10 MG PO; NEURONTIN400 MG PO; NITROFURANTOIN100 MG PO; NOVOLOG FL100 UNIT/1 SUB-Q; PRILOSEC20 MG PO; REQUIP1 MG PO; TYLENOL325 MG PO; ZOLOFT50 MG PO
--- NOTE | 2017-03-11 14:01 | NUR ---
Pt is 77 y/o female admit for hematuria and hyperglycemia for hospitalist. Pt alert and oriented x3. No allergies. Pt has been having frequent falls. States her legs will just give out on her. Hx IDDM,lung CA,RLS,migraines,neuropathy in feet,Parkinsons,gerd,heartburn,psoriasis on legs,depression,incontinent, valve disease. Came from 's office today.
[2017-03-11 14:54] LABS: BASOPHIL # 0.1 K/uL (0.0-0.2); BASOPHIL % 1.2 %; EOSINOPHIL # 0.1 K/uL (0.0-0.5); EOSINOPHIL % 3.2 %; HEMATOCRIT 31.1 % (33.0-46.0); HEMOGLOBIN 9.5 g/dL (10.0-15.0); IMMATURE GRANULOCYTE % 0.5 %; LYMPHOCYTE # 1.1 K/uL (0.8-4.0); LYMPHOCYTE % 25.5 %; MCH 25.4 pg (27.0-34.0); MCHC 30.5 gm/dL (32.0-36.5); MONOCYTE # 0.3 K/uL (0.0-1.0); MONOCYTE % 7.7 %; MPV 9.8 fl (9.4-12.4); NEUTROPHIL # (ANC) 2.7 K/uL (1.8-7.8); NEUTROPHIL % 61.9 %; NRBC % 0 /100WBC (0-0.00); PLATELET COUNT 199 K/uL (150-450); RBC 3.74 M/uL (3.50-5.50); RDW-CV 15.4 % (11.9-14.6); WBC 4.3 K/uL (4.0-11.0)
[2017-03-11 14:55] LABS: MCV 83.2 fl (83.0-98.0)
[2017-03-11 15:11] LABS: ALBUMIN 2.3 gm/dL (3.5-5.0); ANION GAP 9.1 (10.0-19.0); CALCIUM 8.4 mg/dL (8.5-10.5); CREATININE 1.1 mg/dL (0.5-1.1); POTASSIUM 5.1 mMol/L (3.7-5.1); TOTAL BILIRUBIN 0.2 mg/dL (0.0-1.5); TOTAL PROTEIN 9.2 g/dL (6.0-8.4)
[2017-03-11 15:14] LABS: INR - (THERAPEUTIC) 1.11 (0.92-1.07); PROTIME 11.7 SECONDS (9.8-11.4); PTT 29 SECONDS (25-32)
--- NOTE | 2017-03-11 16:37 | NUR ---
Significant Event: Patient A/O x 3. Up with 1PA. VSS on RA. Crackles to right base. Chest xray done. Abdominal USO also done with no acute findings due to hematuria. L)hand PIV with NS infusing at 65 ml/h. OT/PT consult. Plan to consult urology in A.M. Occasional headache, but denies need for intervention. Follow up: Continue as per plan of care. H&H at 2300. Call MD if Hgb <7. Urology consult in A.M.
[2017-03-11 23:02] LABS: HEMATOCRIT 28.6 % (33.0-46.0); HEMOGLOBIN 8.9 g/dL (10.0-15.0)
[2017-03-12 03:28] LABS: HEMATOCRIT 31.4 % (33.0-46.0); HEMOGLOBIN 9.8 g/dL (10.0-15.0); MCH 26.4 pg (27.0-34.0); MCHC 31.2 gm/dL (32.0-36.5); MCV 84.6 fl (83.0-98.0); MPV 10.5 fl (9.4-12.4); RBC 3.71 M/uL (3.50-5.50); RDW-CV 15.7 % (11.9-14.6); WBC 6.6 K/uL (4.0-11.0)
[2017-03-12 03:47] LABS: ALBUMIN 2.2 gm/dL (3.5-5.0); ALK PHOS 117 IU/L (33-138); ALT 25 IU/L (12-78); ANION GAP 8.7 (10.0-19.0); AST 39 IU/L (10-40); BLOOD UREA NITROGEN 27 mg/dL (6-24); CALCIUM 7.8 mg/dL (8.5-10.5); CHLORIDE 104 mMol/L (96-110); CO2 25 mMol/L (22-32); ESTIMATED GFR (MDRD EQUATION) 54; POTASSIUM 4.7 mMol/L (3.7-5.1); SODIUM 133 mMol/L (135-145); TOTAL BILIRUBIN 0.2 mg/dL (0.0-1.5); TOTAL PROTEIN 8.8 g/dL (6.0-8.4)
--- NOTE | 2017-03-12 04:53 | NUR ---
Significant Event: A/O x3. Afebrile. Headache pain, gave morphine 2 mgx1. Nausea, zofran given. 80ml emesis. VSS on RA. SBP 97-130s. HR 80s. Bloody urine. Urine culture done. Accu q 4 hrs. 140-230 blood sugars. Hgb 9.8 this am. Follow up: Continue to monitor per plan of care.
[2017-03-12 09:49] LABS: BILIRUBIN URINE NEGATIVE (NEGATIVE); BLOOD URINE 250 /UL (NEGATIVE); COLOR URINE RED (YELLOW); GLUCOSE URINE NEGATIVE (NEGATIVE); KETONE URINE NEGATIVE (NEGATIVE); LEUKOCYTES URINE NEGATIVE /UL (NEGATIVE); NITRITE URINE NEGATIVE (NEGATIVE); PROTEIN URINE 500 mg/dL (NEGATIVE); SPEC GRAVITY URINE 1.015 (1.003-1.035); TURBIDITY URINE 4+ (CLEAR); UROBILINOGEN URINE NORMAL (NORMAL)
[2017-03-12 09:59] LABS: EPITHELIAL URINE RARE #/HPF (NEGATIVE); RBC URINE PACKED FIELD #/HPF (NEGATIVE)
[2017-03-12 10:10] LABS: BACTERIA URINE FEW (NEGATIVE)
--- NOTE | 2017-03-12 16:03 | NUR ---
Attempted twice to see patient today, once was off the unit and once speech therapy was evaluating. Reviewed patient's information and she lives in [place] with S.O. Anticipate she will return home when ready for discharge. Will follow.
--- NOTE | 2017-03-12 18:01 | NUR ---
Patient denies c/o pain. She continues to void large amounts of bloody urine. Urology consulted to see patient. Patient ambulates easily with walker and SBA.
[2017-03-13 04:15] LABS: BASOPHIL # 0.1 K/uL (0.0-0.2); BASOPHIL % 1.5 %; EOSINOPHIL # 0.2 K/uL (0.0-0.5); EOSINOPHIL % 5.5 %; HEMATOCRIT 29.5 % (33.0-46.0); IMMATURE GRANULOCYTE % 0.3 %; LYMPHOCYTE # 1.2 K/uL (0.8-4.0); LYMPHOCYTE % 28.9 %; MCHC 30.5 gm/dL (32.0-36.5); MCV 85.3 fl (83.0-98.0); MONOCYTE # 0.4 K/uL (0.0-1.0); MONOCYTE % 11.1 %; MPV 9.8 fl (9.4-12.4); NEUTROPHIL # (ANC) 2.1 K/uL (1.8-7.8); NEUTROPHIL % 52.7 %; NRBC % 0 /100WBC (0-0.00); PLATELET COUNT 162 K/uL (150-450); RBC 3.46 M/uL (3.50-5.50); RDW-CV 15.9 % (11.9-14.6)
[2017-03-13 04:30] LABS: ANION GAP 8.5 (10.0-19.0); BLOOD UREA NITROGEN 19 mg/dL (6-24); CALCIUM 7.8 mg/dL (8.5-10.5); CHLORIDE 110 mMol/L (96-110); CO2 25 mMol/L (22-32); CREATININE 0.7 mg/dL (0.5-1.1); ESTIMATED GFR (MDRD EQUATION) > 60; POTASSIUM 4.5 mMol/L (3.7-5.1); SODIUM 139 mMol/L (135-145)
--- NOTE | 2017-03-13 05:17 | NUR ---
A&O. VSS. Afebrile. SBA. Blood in urine- urology to see today. Accuchecks Q4H moderate scale. BS this shift were 268, 180, 165. Continue plan of care, discharge when appropriate.
--- NOTE | 2017-03-13 12:00 | NUR ---
Introduced self and role of care management to patient. She lives in [place] with her ex /S.O. She says he is retired and avaialble to assist her as needed. Their children live in [place] but also come to help. She plans home when ready for discharge. Will follow.
[2017-03-13] MEDS ORDERED: FEOSOL325 MG PO (16:27)
== END 2017-03-13 17:30 | disposition disaster alternative care site (69) ==
LOC: GPCU 12:47
PROVIDERS: Family Medicine; ADMIT Internal Medicine
DX: R31.0 Gross hematuria (principal); D50.9 Iron deficiency anemia, unspecified; E86.0 Dehydration; K76.0 Fatty (change of) liver, not elsewhere classified; I10 Essential (primary) hypertension; N17.9 Acute kidney failure, unspecified; E11.65 Type 2 diabetes mellitus with hyperglycemia; Z87.891 Personal history of nicotine dependence; Z90.710 Acquired absence of both cervix and uterus; Z90.49 Acquired absence of other specified parts of digestive tract; Z98.890 Other specified postprocedural states; Z79.82 Long term (current) use of aspirin; Z79.4 Long term (current) use of insulin; Z79.899 Other long term (current) drug therapy
CPT/HCPCS: G0378; G8978; G8979; G8980; G8987; G8988; G8989; G9168; G9169; G9170; J2270; J2405; J7030